=== PATIENT | male | born 1980 | race African-American/Black ===

== ENCOUNTER 2018-10-05 11:12 | Emergency (ER) | payer OTHER ==
[~2018-10-05] VITALS: Ht 182.9 cm; Wt 77.6 kg
[2018-10-05 11:15] VITALS: BP 124/81
--- NOTE | 2018-10-05 11:20 | NUR ---
Note undone in EDM - 10/05/18 at 1149 by DARYL 37m bib girlfriend with c/o 06/05 bl wisdom teeth pain x 2 month, worse this past week. Scheduled for extraction on 10/10/17. Patient denies any fever or recent injury. No relief with OTC medication. Clear speech with full setences. nad. awaiting er md stanley. will continue to monitor.
--- NOTE | 2018-10-05 11:24 | NUR ---
PATIENT AMBULATED TO BED 12 AT THIS TIME.
--- NOTE | 2018-10-05 11:30 | NUR ---
37m bib girlfriend with c/o 06/05 bl wisdom teeth pain x 2 month, worse this past week. Scheduled for extraction on 10/10/17. Patient denies any fever or recent injury. No relief with OTC medication. Clear speech with full setences. nad. awaiting er md stanley. will continue to monitor.
[2018-10-05] MEDS ORDERED: KETOROLAC 60 MG/2 ML VIAL IM ONE (12:05)
[2018-10-05] MEDS ORDERED: traMADol 50 MG TAB PO ONE (12:05)
[2018-10-05] MEDS ORDERED: AMOXICILLIN 500 MG CAP PO ONE (12:05)
[2018-10-05 12:39] VITALS: BP 119/80
--- NOTE | 2018-10-05 12:39 | NUR ---
Patient discharged with v/s stable. Written and verbal after care instructions given and explained. Patient alert, oriented and verbalized understanding of instructions. Ambulatory with steady gait. All questions addressed prior to discharge. ID band removed. Patient advised to follow up with PMD. Rx of Igo #5-325mg, Motrin 800mg, Tramadol 50mg, and Amoxicillin 500mg given. Patient educated on indication of medication including possible reaction and side effects. Opportunity to ask questions provided and answered.
== END 2018-10-05 12:39 | disposition home or self-care (01) ==
LOC: MED 11:12
DX: K04.7 Periapical abscess without sinus (principal); J45.909 Unspecified asthma, uncomplicated; E11.9 Type 2 diabetes mellitus without complications; I10 Essential (primary) hypertension
CPT/HCPCS: 96372; 99283; J1885